=== PATIENT | female | born 1995 | race Asian ===

== ENCOUNTER 2024-02-20 00:10 | Emergency (ER) | payer OTHER ==
[~2024-02-20] VITALS: Ht 137.2 cm; Wt 50.0 kg
[2024-02-20 00:15] VITALS: TEMP 100.4; O2SAT 98
[2024-02-20] MEDS ORDERED: BACITRACIN ZINC OINT UDPKT TOP ONE (01:00)
[2024-02-20] MEDS ORDERED: TETANUS, DIPHTHERIA, PERTUSSIS VAC/PF 0.5ML (>10YR OLD) IM ONE ×3 (01:00→04:30)
[2024-02-20] MEDS ORDERED: LIDOCAINE HCL/PF 1% 10 MG/ML 5ML VIAL INFIL ONE (01:00)
[2024-02-20] MEDS ORDERED: ACETAMINOPHEN 500MG TABLET PO ONE (02:00)
[2024-02-20] MEDS ORDERED: ACETAMINOPHEN 500MG TABLET PO NR (02:15)
[2024-02-20] MEDS ORDERED: LIDOCAINE HCL/PF 1% 10 MG/ML 5ML VIAL INFIL NR (02:15)
[2024-02-20] MEDS ORDERED: BACITRACIN ZINC OINT UDPKT TOP NR (02:15)
[2024-02-20] MEDS ORDERED: ACET-2708 MT (04:04)
[2024-02-20 04:19] VITALS: BP 106/79; PULSE 68; RESP 16; O2SAT 99
== END 2024-02-20 04:19 | disposition home or self-care (01) ==
LOC: ER 00:47
DX: S01.81XA Laceration without foreign body of other part of head, initial encounter (principal); W18.39XA Other fall on same level, initial encounter; Y93.89 Activity, other specified; Y92.89 Other specified places as the place of occurrence of the external cause; Y99.8 Other external cause status
CPT/HCPCS: 81025; 70450; 72125; 12002; 99284; Z7610